=== PATIENT | female | born 1985 | race Caucasian/White ===

== ENCOUNTER → 2019-12-28 10:23 | Outpatient (BNVA) | payer BC, SELFPAY | PROVIDERS: Visit Provider Advanced Practice Midwife | DX: Z01.419 Encounter for gynecological examination (general) (routine) without abnormal findings (principal); Z30.42 Encounter for surveillance of injectable contraceptive; N89.8 Other specified noninflammatory disorders of vagina; E66.01 Morbid (severe) obesity due to excess calories; Z68.41 Body mass index [BMI] 40.0-44.9, adult | CPT/HCPCS: 96372; J1050 ==

== ENCOUNTER → 2020-03-21 14:52 | Outpatient (BNVA) | payer BC, SELFPAY | PROVIDERS: Visit Provider Advanced Practice Midwife ==

== ENCOUNTER → 2020-06-13 12:55 | Outpatient (BNVA) | payer BC, SELFPAY | PROVIDERS: Visit Provider Advanced Practice Midwife | DX: Z30.42 Encounter for surveillance of injectable contraceptive (principal) | CPT/HCPCS: 96372; J1050 ==

== ENCOUNTER → 2020-08-30 12:51 | Outpatient (BNVA) | payer BC, SELFPAY | PROVIDERS: Visit Provider Advanced Practice Midwife | DX: Z30.42 Encounter for surveillance of injectable contraceptive (principal) | CPT/HCPCS: 96372 ==

== ENCOUNTER → 2020-11-17 14:50 | Outpatient (BNVA) | payer BC, SELFPAY | PROVIDERS: Visit Provider Advanced Practice Midwife | DX: Z30.42 Encounter for surveillance of injectable contraceptive (principal) | CPT/HCPCS: 96372 ==

== ENCOUNTER → 2021-03-15 14:28 | Outpatient (BNVA) | payer BC, SELFPAY | PROVIDERS: Visit Provider Advanced Practice Midwife | DX: Z30.42 Encounter for surveillance of injectable contraceptive (principal); E66.01 Morbid (severe) obesity due to excess calories; Z68.38 Body mass index [BMI] 38.0-38.9, adult | CPT/HCPCS: 81025; 96372 ==

== ENCOUNTER → 2021-06-05 08:48 | Outpatient (BNVA) | payer BC, SELFPAY | PROVIDERS: Visit Provider Advanced Practice Midwife | DX: Z30.42 Encounter for surveillance of injectable contraceptive (principal) | CPT/HCPCS: 96372 ==

== ENCOUNTER → 2021-08-28 13:04 | Outpatient (BNVA) | payer BC, SELFPAY | PROVIDERS: Visit Provider Advanced Practice Midwife | DX: Z30.42 Encounter for surveillance of injectable contraceptive (principal) | CPT/HCPCS: 96372 ==

== ENCOUNTER 2021-11-28 14:57 | Outpatient (REF) | payer BC, OTHER, SELFPAY ==
[2021-11-30 22:17] LABS: HPV mRNA E6/E7 rflx Not Detected (Not Detected)
== END 2021-11-28 14:58 | disposition home or self-care (01) ==
LOC: HO.LNP 14:57
PROVIDERS: Visit Provider Advanced Practice Midwife
DX: Z30.42 Encounter for surveillance of injectable contraceptive (principal); Z12.4 Encounter for screening for malignant neoplasm of cervix; Z11.51 Encounter for screening for human papillomavirus (HPV)
CPT/HCPCS: 87624; 88142; 96372

== ENCOUNTER → 2022-02-20 14:53 | Outpatient (BNVA) | payer BC, SELFPAY | PROVIDERS: Visit Provider Advanced Practice Midwife | DX: Z30.42 Encounter for surveillance of injectable contraceptive (principal) | CPT/HCPCS: 96372 ==

== ENCOUNTER → 2022-05-14 14:58 | Outpatient (BNVA) | payer BC, SELFPAY | PROVIDERS: Visit Provider Advanced Practice Midwife | DX: Z30.42 Encounter for surveillance of injectable contraceptive (principal) | CPT/HCPCS: 96372 ==

== ENCOUNTER 2022-08-23 15:08 | Outpatient (AMB) | payer SELFPAY ==
[2022-08-23 15:12] VITALS: BP 110/70; BMI 40.8
--- NOTE | 2022-08-23 15:12 | MHC.OFFVIS ---
Intake Vital Signs 08/23/22 15:12 Height 5 ft 2 in Weight 223 lb BMI 40.8 BP 110/70 Intake Visit Reasons: restart depo Intake Note: The patient agreed to use of a medical billing manager during this encounter. Scribed for ALISSA Will by Annie Hodges medical billing manager, on 08/23/2022 at 3:19 pm EST. Allergies No Known Allergies Allergy (Mild, Verified 08/23/22 15:14) UNKNOWN HPI HPI Comments History of Present Illness Details She is here to day with interest of restarting Depo Provera today. UPI 2-3 weeks ago. [facility] Medical History Surveillance for Depo-Provera contraception Surgical History No history of previous surgery Family History Father Heart attack Maternal Grandmother Lung cancer Maternal Grandfather Heart problem Social History Alcohol intake: current Alcohol intake frequency: a few times a month Alcohol type: wine Patient Tobacco Use Status: Never used Tobacco Sexual orientation: Straight/Heterosexual Gender identity: Female Female Reproductive History Menstrual Age of Menarche: 14 Physical Exam Vital Signs: Last Vital Signs BP 110/70 08/23/22 15:12 BMI result Body Mass Index 40.8 Const General: cooperative, healthy appearing, comfortable, no acute distress, well developed, alert and awake Office Procedures Depo Questionnaire If YES to any of the following questions, please consult a provider. Date of last injection: 02/20/22 Menstrual pattern since last injection has been: Normal test in office results: Negative Irregular bleeding?: No Breast lumps or other breast changes?: No Changes in weight or appetite?: No Depression or changes in mood?: No Abnormal hair growth or loss?: No Skin problems (rash, acne, discoloration)?: No Pain at the injection site?: No Headaches?: No Nervousness?: No Abdominal pain or cramping?: No Dizziness or nausea?: No Fatigue or weakness?: No Decrease in sexual drive?: No Chest pain or shortness of breath?: No Swelling in arms or legs?: No Any other problems or concerns?: RE start depo today/ appt with JOSEPH Sawant Form completed by?: Zainab Sierra LPN Office Meds Depo-Provera Performing Provider: Azra Sawant CNM Administered by: Lizy Sierra LPN on 08/23/22 15:37 Dose Route Admin Location Lot Number Expiration Date [employer] Cutter 150 mg IM rt. deltoid [id number] 11/10/24 41838-389-55 [facility] Results AMB Test Urine AMB Test Urine Negative Last Edit by CONSTANTINO Sherman on 08/23/22 15:17 Results Reviewed Results Reviewed: Laboratory Last Values [facility] Negative 08/23/22 15:16 Assessment & Plan Assessment & Plan (1) control counseling: Code(s): Z30.09 - Encounter for other general counseling and advice on contraception Plan: Discussed: Instructed to monitor periods and contact the office with any concerns. Encouraged condoms always to prevent STD's. Advised BUM x 7days. Return every 12 weeks thereafter. Encouraged patient to sign up for patient portal. She will call the office with any concerns. (2) Encounter for management and injection of depo-Provera: Code(s): Z30.42 - Encounter for surveillance of injectable contraceptive (3) Surveillance for Depo-Provera contraception: Code(s): Z30.42 - Encounter for surveillance of injectable contraceptive Orders: Orders AMB Medroxyprogesterone Injection Patient Supplied Today Z30.42 - Encounter for surveillance of injectable contraceptive AMB HCG Urine Test Today Z32.02 - Encounter for test, result negative Coding Level of Care Code Est Pt Level 3 (59304) Diagnoses control counseling Z30.09 Encounter for management and injection of depo-Provera Z30.42 Surveillance for Depo-Provera contraception Z30.42
== END 2022-08-24 07:20 | disposition home or self-care (01) ==
LOC: HO.HWS 15:08
PROVIDERS: Visit Provider Advanced Practice Midwife
DX: Z30.09 Encounter for other general counseling and advice on contraception (principal); Z30.42 Encounter for surveillance of injectable contraceptive; Z32.02 Encounter for pregnancy test, result negative
CPT/HCPCS: 99213

== ENCOUNTER → 2022-08-23 15:08 | Outpatient (BNVA) | payer BC, SELFPAY | PROVIDERS: Visit Provider Advanced Practice Midwife | DX: Z30.42 Encounter for surveillance of injectable contraceptive (principal); Z30.09 Encounter for other general counseling and advice on contraception; Z32.02 Encounter for pregnancy test, result negative | CPT/HCPCS: 81025; 96372; J1050 ==

== ENCOUNTER 2022-11-22 15:06 | Outpatient (AMB) | payer BC, SELFPAY ==
[2022-11-22 15:34] VITALS: BMI 41.5
--- NOTE | 2022-11-22 15:34 | AM.OFFVISNUR ---
Intake Vital Signs 11/22/22 15:34 Height 5 ft 2 in Weight 102.965 kg BMI 41.5 Intake Visit Reasons: Depo Allergies No Known Allergies Allergy (Mild, Verified 08/23/22 15:14) UNKNOWN Nursing Note patricia is here for her Depo-Provera inj. No c/o pt is scheduled for AG in 1 week. Pt to schedule next depo-provera inj in 12 wks. Office Procedures Depo Questionnaire If YES to any of the following questions, please consult a provider. Date of last injection: 08/23/22 Date of last gynecology exam: 11/28/21 Menstrual pattern since last injection has been: Not Applicable Irregular bleeding?: No Breast lumps or other breast changes?: No Changes in weight or appetite?: No Depression or changes in mood?: No Abnormal hair growth or loss?: No Skin problems (rash, acne, discoloration)?: No Pain at the injection site?: No Headaches?: No Nervousness?: No Abdominal pain or cramping?: No Dizziness or nausea?: No Fatigue or weakness?: No Decrease in sexual drive?: No Chest pain or shortness of breath?: No Swelling in arms or legs?: No Any other problems or concerns?: none voiced Form completed by?: Zainab Sierra LPN Office Meds Depo-Provera 150 mg/mL intramuscular syringe Performing Provider: Azra Sawant CNM [place] [facility] [place] [facility] Administered by: Lizy Sierra LPN on 11/22/22 15:35 Dose Route Admin Location Dispensed Lot Number Expiration Date [facility] Core Analyst 150 mg IM left deltoid 1 mL [id number] 12/11/24 02621-727-[address] [facility] Coding Level of Care Code Established Pt Est Pt Level 1 (76177) Patient Type Established History Problem Focused Exam Problem Focused Medical Decision Making Straight Forward Time Spent (min) 20 Assessment & Plan Assessment & Plan Orders: Orders AMB Medroxyprogesterone Injection Patient Supplied Today Z30.42 - Encounter for surveillance of injectable contraceptive
== END 2022-11-22 15:33 | disposition home or self-care (01) ==
PROVIDERS: Visit Provider Advanced Practice Midwife
DX: Z30.42 Encounter for surveillance of injectable contraceptive (principal)

== ENCOUNTER → 2022-11-22 15:06 | Outpatient (BNVA) | payer BC, SELFPAY | PROVIDERS: Visit Provider Advanced Practice Midwife | DX: Z30.42 Encounter for surveillance of injectable contraceptive (principal) | CPT/HCPCS: 96372; 99211; J1050 ==

== ENCOUNTER 2022-11-30 15:02 | Outpatient (AMB) | payer SELFPAY ==
--- NOTE | 2022-11-30 15:19 | MHC.OFFVIS ---
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 She admits to eating healthy and tries to stay active with work. Currently sexually active. Uses Depo for BC and is doing well. Denies vaginal itching and irritation. STD screening offered; she declines. Denies family hx of breast, colon and ovarian cancer. Last pap smear 11/29/21. She denies any contraindications to control such as: migraines with aura, history of DVT or pulmonary emboli, high blood pressure, liver disease, thrombolic disorders, Lupus, +JENNIFER, or smoking. [facility] Medical History Surveillance for Depo-Provera contraception Surgical History No history of previous surgery Family History Father Heart attack Maternal Grandmother Lung cancer Maternal Grandfather Heart problem Social History Household Members: Spouse and Children Housing: House Alcohol intake: current Alcohol intake frequency: a few times a month Alcohol type: wine Patient Tobacco Use Status: Never used Tobacco Current occupational status: employed Current occupation: Paraprofetional at school Sexually active: Yes Sexual orientation: Straight/Heterosexual Gender identity: Female Female Reproductive History Menstrual Age of Menarche: 14 control method: progesterone injection Total pregnancies: 4 Full term: 4 Number of Living Children: 4 Date of last pap smear: 11/29/21 Physical Exam Vital Signs: Last Vital Signs BP 122/88 11/30/22 15:23 BMI result Body Mass Index 41.1 Const General: cooperative, healthy appearing, no acute distress, well developed and alert Orientation/consciousness: patient oriented x3 HEENT Head: Yes normal to inspection Eyes General: appearance normal, both eyes and all related structures Neck Neck: Yes normal visual inspection Thyroid: Thyroid normal Chest Chest palpation & inspection: normal inspection of the chest Breast/axilla inspection: normal inspection of the breasts (no puckering, dimpling, peau de orange, retraction, discharge, masses) Breast/axilla palpation: normal palpation of the breasts Resp Effort & Inspection: normal respiratory effort GI Inspection: Yes normal to inspection Palpation (GI): Soft to palpation (to palpation) Rectal Exam - Female: deferred General: Yes bladder normal to inspection External Female Exam: normal external appearance and normal appearance of the urethra Speculum Exam - Vagina: normal appearance of the vagina, normal palpation and normal vaginal discharge Speculum Exam - Cervix: normal appearance of the cervix and normal palpation Bimanual exam- vagina & uterus: normal palpation and normal palpation Bimanual Exam- Adnexa, other: normal adnexae and no masses Skin General skin exam: no rashes or lesions noted Neuro General: patient oriented x3 Cognition (Neuro): normal cognition Extrem General: Yes normal to inspection Psych Attitude: cooperative Thought process: Normal thought process present Assessment & Plan Assessment & Plan (1) Encounter for well woman exam: Code(s): Z01.419 - Encounter for gynecological examination (general) (routine) without abnormal findings Plan: Discussed: Current recommendations for pap smears per ASCCP guidelines. Breast awareness and periodic self breast exams. Maintaining a healthy lifestyle including a well balanced diet and routine exercise. Encouraged patient to sign up for patient portal. All of her questions and concerns were addressed to the best of my ability. RTO in one year for AG. (2) Surveillance for Depo-Provera contraception: Code(s): Z30.42 - Encounter for surveillance of injectable contraceptive Plan: She was instructed to go to ER if she develops loss of vision, severe headache that does not resolve, chest pain, difficulty breathing, abdominal pain, or pain or tenderness in extremity or new breast lumps. Call the office with any concerns. Medications: Refilled medroxyprogesterone (Depo-Provera) 150 mg IM Q12W 1 mL 4RF Coding Level of Care Code Est Pt Prev Care 18-39y(85354) Diagnoses Encounter for well woman exam Z01.419 Surveillance for Depo-Provera contraception Z30.42
[2022-11-30 15:23] VITALS: BP 122/88; BMI 41.1
== END 2022-11-30 15:48 | disposition home or self-care (01) ==
PROVIDERS: Visit Provider Advanced Practice Midwife
DX: Z01.419 Encounter for gynecological examination (general) (routine) without abnormal findings (principal); Z30.42 Encounter for surveillance of injectable contraceptive
CPT/HCPCS: 99395

== ENCOUNTER → 2022-11-30 15:02 | Outpatient (BNVA) | payer SELFPAY | PROVIDERS: Visit Provider Advanced Practice Midwife ==

== ENCOUNTER 2023-02-07 08:53 | Outpatient (AMB) | payer BC, SELFPAY ==
[2023-02-07 09:04] VITALS: BMI 41.3
--- NOTE | 2023-02-07 09:04 | AM.OFFVISNUR ---
Intake Vital Signs 02/07/23 09:04 Height 5 ft 2 in Weight 102.54 kg BMI 41.3 Intake Visit Reasons: DEPO Allergies No Known Allergies Allergy (Mild, Verified 11/30/22 15:25) UNKNOWN Nursing Note Lenka is here today for her scheduled Depo-Provera inj.She has been experiencing some abn bleeding with cramps, but is relating this to being on antibiotics x 2 weeks. Pt reports it is light, not a regular flow, but mostly when she wipes. Pt was advised if her bleeding continues for another week or two to call for appt. Pt verbs understanding. Office Procedures Depo Questionnaire If YES to any of the following questions, please consult a provider. Date of last injection: 11/12/22 Date of last menstrual period: 01/21/23 Date of last gynecology exam: 11/22/22 Menstrual pattern since last injection has been: Normal Irregular bleeding?: Yes Breast lumps or other breast changes?: No Changes in weight or appetite?: No Depression or changes in mood?: No Abnormal hair growth or loss?: No Skin problems (rash, acne, discoloration)?: No Pain at the injection site?: No Headaches?: No Nervousness?: No Abdominal pain or cramping?: Yes Dizziness or nausea?: No Fatigue or weakness?: No Decrease in sexual drive?: No Chest pain or shortness of breath?: No Swelling in arms or legs?: No Form completed by?: Zainab Sierra LPN Office Meds Depo-Provera 150 mg/mL intramuscular syringe Performing Provider: Azra Sawant CNM [place] [facility] [facility] Administered by: Lizy Sierra LPN on 02/07/23 09:05 Dose Route Admin Location Dispensed Lot Number Expiration Date [facility] Plug Cutter 150 mg IM rt. deltoid 1 mL [id number] 12/11/24 75654-364-24 [facility] Coding Level of Care Code Established Pt Est Pt Level 1 (45133) Patient Type Established History Problem Focused Exam Problem Focused Medical Decision Making Straight Forward Time Spent (min) 20 Assessment & Plan Assessment & Plan Orders: Orders AMB Medroxyprogesterone Injection Patient Supplied Today Z30.42 - Encounter for surveillance of injectable contraceptive
== END 2023-02-07 09:03 | disposition home or self-care (01) ==
LOC: HO.HWS 08:53
PROVIDERS: Visit Provider Advanced Practice Midwife
DX: Z30.42 Encounter for surveillance of injectable contraceptive (principal)

== ENCOUNTER → 2023-02-07 08:53 | Outpatient (BNVA) | payer BC, SELFPAY | PROVIDERS: Visit Provider Advanced Practice Midwife | DX: Z30.42 Encounter for surveillance of injectable contraceptive (principal) | CPT/HCPCS: 96372; 99211; J1050 ==

== ENCOUNTER 2023-04-26 14:54 | Outpatient (AMB) | payer BC, SELFPAY ==
[2023-04-26 15:15] VITALS: BMI 42.5
--- NOTE | 2023-04-26 15:15 | AM.OFFVISNUR ---
Intake Vital Signs 04/26/23 15:15 Height 5 ft 2 in Weight 232 lb 4 oz BMI 42.5 Intake Visit Reasons: DEPO Emergency Response Technician Required: No Allergies No Known Allergies Allergy (Mild, Verified 11/30/22 15:25) UNKNOWN Is last menstrual period known: No Post menopausal: No Patient : No Do you need a note to return to daycare/school/sports/work: No Nursing Note Lenka is here for scheduled for Depo provera injection. No c/o. Pt tolerated injection well. She will schedule her next injection in 12 weeks. Pt verbalized understanding and agrees with plan. No further questions. Office Procedures Depo Questionnaire If YES to any of the following questions, please consult a provider. Date of last injection: 02/07/23 Date of last gynecology exam: 11/30/22 Menstrual pattern since last injection has been: Not Applicable Irregular bleeding?: No Breast lumps or other breast changes?: No Changes in weight or appetite?: No Depression or changes in mood?: No Abnormal hair growth or loss?: No Skin problems (rash, acne, discoloration)?: No Pain at the injection site?: No Headaches?: No Nervousness?: No Abdominal pain or cramping?: No Dizziness or nausea?: No Fatigue or weakness?: No Decrease in sexual drive?: No Chest pain or shortness of breath?: No Swelling in arms or legs?: No Form completed by?: Nely Thompson mine utility operator Meds Depo-Provera 150 mg/mL intramuscular syringe Performing Provider: Azra Sawant CNM Performing Location: [facility] [place] [facility] Administered by: Nely Thompson on 04/26/23 15:17 Dose Route Admin Location Dispensed Lot Number Expiration Date [facility] Key Bed Installer 150 mg IM left deltoid 1 mL [id number] 05/11/25 70485-350-40 [facility] Coding Level of Care Code Established Pt Est Pt Level 1 (52752) Patient Type Established History Problem Focused Medical Decision Making Straight Forward Time Spent (min) 12 Assessment & Plan Assessment & Plan Orders: Orders AMB Medroxyprogesterone Injection Patient Supplied Today Z30.42 - Encounter for surveillance of injectable contraceptive
== END 2023-04-26 15:11 | disposition home or self-care (01) ==
LOC: HO.HWS 14:55
PROVIDERS: Visit Provider Advanced Practice Midwife
DX: Z30.42 Encounter for surveillance of injectable contraceptive (principal)

== ENCOUNTER → 2023-04-26 14:54 | Outpatient (BNVA) | payer BC, SELFPAY | PROVIDERS: Visit Provider Advanced Practice Midwife | DX: Z30.42 Encounter for surveillance of injectable contraceptive (principal) | CPT/HCPCS: 96372; 99211; J1050 ==

== ENCOUNTER 2023-07-16 15:12 | Outpatient (AMB) | payer BC, SELFPAY ==
--- NOTE | 2023-07-16 15:27 | AM.OFFVISNUR ---
Intake Vital Signs 07/16/23 15:28 Height 5 ft 2 in Weight 105.233 kg BMI 42.4 Intake Visit Reasons: Depo/315pm arrival Allergies No Known Allergies Allergy (Mild, Verified 11/30/22 15:25) UNKNOWN Nursing Note Lenka is here today for her scheduled Depo-provera inj. She has no complaints, and tolerated inj well. follow up in September. for next inj. Office Procedures Depo Questionnaire If YES to any of the following questions, please consult a provider. Date of last injection: 04/26/23 Date of last gynecology exam: 11/30/22 Menstrual pattern since last injection has been: Not Applicable Irregular bleeding?: No Breast lumps or other breast changes?: No Changes in weight or appetite?: No Depression or changes in mood?: No Abnormal hair growth or loss?: No Skin problems (rash, acne, discoloration)?: No Pain at the injection site?: No Headaches?: No Nervousness?: No Abdominal pain or cramping?: No Dizziness or nausea?: No Fatigue or weakness?: No Decrease in sexual drive?: No Chest pain or shortness of breath?: No Swelling in arms or legs?: No Form completed by?: Zainab Sierra LPN Office Meds Depo-Provera 150 mg/mL intramuscular syringe Performing Provider: Azra Sawant CNM [place] [facility] [place] [facility] Administered by: Lizy Sierra LPN on 07/16/23 15:28 Dose Route Admin Location Dispensed Lot Number Expiration Date [facility] Security Systems Administrator 150 mg IM 1 mL [id number] 09/09/25 76546-152-51 [facility] Coding Level of Care Code Established Pt Est Pt Level 1 (58340) Patient Type Established History Problem Focused Exam Problem Focused Medical Decision Making Straight Forward Time Spent (min) 20 Assessment & Plan Assessment & Plan Orders: Orders AMB Medroxyprogesterone Injection Patient Supplied Today Z30.42 - Encounter for surveillance of injectable contraceptive Medications: New Depo-Provera (medroxyprogesterone) 150 mg IM ONCE 1 mL 0RF NS Z30.42 - Encounter for surveillance of injectable contraceptive
[2023-07-16 15:28] VITALS: BMI 42.4
== END 2023-07-17 10:21 | disposition home or self-care (01) ==
LOC: HO.HWS 15:13
PROVIDERS: Visit Provider Advanced Practice Midwife
DX: Z30.42 Encounter for surveillance of injectable contraceptive (principal)

== ENCOUNTER → 2023-07-16 15:12 | Outpatient (BNVA) | payer BC, SELFPAY | PROVIDERS: Visit Provider Advanced Practice Midwife | DX: Z30.42 Encounter for surveillance of injectable contraceptive (principal) | CPT/HCPCS: 96372; 99211; J1050 ==

== ENCOUNTER 2023-10-01 14:57 | Outpatient (AMB) | payer BC, SELFPAY ==
--- NOTE | 2023-10-01 15:12 | AM.OFFVISNUR ---
Vital Signs 10/01/23 15:13 Height 5 ft 2 in Weight 241 lb 2 oz BMI 44.1 Intake Visit Reasons: depo Allergies No Known Allergies Allergy (Mild, Verified 11/30/22 15:25) UNKNOWN Nursing Note Lenka is here for scheduled Depo provera injection. No c/o, no new medical problems and no new medications. Pt tolerated injection well. She will schedule her next injection in 12 weeks. Pt verbalizes understanding and agrees with plan. No further questions. Office Procedures Depo Questionnaire If YES to any of the following questions, please consult a provider. Date of last injection: 07/16/23 Date of last gynecology exam: 11/30/22 Menstrual pattern since last injection has been: Not Applicable Irregular bleeding?: No Breast lumps or other breast changes?: No Changes in weight or appetite?: No Depression or changes in mood?: No Abnormal hair growth or loss?: No Skin problems (rash, acne, discoloration)?: No Pain at the injection site?: No Headaches?: No Nervousness?: No Abdominal pain or cramping?: No Dizziness or nausea?: No Fatigue or weakness?: No Decrease in sexual drive?: No Chest pain or shortness of breath?: No Swelling in arms or legs?: No Form completed by?: Nely Thompson exercise scientist Meds Depo-Provera 150 mg/mL intramuscular syringe Performing Provider: Azra Sawant CNM Performing Location: [facility] [place] [facility] Administered by: Nely Thompson on 10/01/23 15:15 Dose Route Admin Location Dispensed Lot Number Expiration Date [facility] [employer] Installer 150 mg IM left deltoid 1 mL [id number] 02/10/26 98951-884-34 [facility] Assessment & Plan Assessment & Plan (1) Surveillance for Depo-Provera contraception: Code(s): Z30.42 - Encounter for surveillance of injectable contraceptive Category: Medical Plan Pt will schedule next injection in 12 weeks. Orders: Orders AMB Medroxyprogesterone Injection Patient Supplied 10/01/23 Z30.42 - Encounter for surveillance of injectable contraceptive
[2023-10-01 15:13] VITALS: BMI 44.1
== END 2023-10-01 15:22 | disposition home or self-care (01) ==
LOC: HO.HWS 14:57
PROVIDERS: Visit Provider Advanced Practice Midwife
DX: Z30.42 Encounter for surveillance of injectable contraceptive (principal)

== ENCOUNTER → 2023-10-01 14:57 | Outpatient (BNVA) | payer BC, SELFPAY | PROVIDERS: Visit Provider Advanced Practice Midwife | DX: Z30.42 Encounter for surveillance of injectable contraceptive (principal) | CPT/HCPCS: 96372; 99211; J1050 ==

== ENCOUNTER 2023-12-03 13:59 | Outpatient (AMB) | payer BC, SELFPAY ==
--- NOTE | 2023-12-03 14:03 | A.OFFVIS_ITS ---
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 Doing well with no concerns. She tries to eat healthy and stays active with exercise. Doing well on Depo Provera. She denies any contraindications to control such as: migraines with aura, history of DVT or pulmonary emboli, high blood pressure, liver disease, thrombolic disorders, Lupus, +JENNIFER, breast cancer, or smoking. Currently is sexually active. She denies vaginal itching and irritation. STI screening offered; she declines. Denies family history of breast, ovarian or colon cancer. Last pap smear 2021, negative. [facility] Medical History Surveillance for Depo-Provera contraception Surgical History No history of previous surgery Family History Father Heart attack Maternal Grandmother Lung cancer Maternal Grandfather Heart problem Social History Household Members: Spouse and Children Housing: House Alcohol intake: current Alcohol intake frequency: a few times a month Alcohol type: wine Patient Tobacco Use Status: Never used Tobacco Current occupational status: employed Current occupation: Paraprofetional at school Sexual orientation: Straight/Heterosexual Gender identity: Female Female Reproductive History Menstrual Age of Menarche: 14 control method: progesterone injection (Depo 10/01/23) Total pregnancies: 4 Full term: 4 Number of Living Children: 4 Date of last pap smear: 11/28/21 (neg pap and hpv) Review of Systems Const All systems reviewed & are unremarkable except as noted in HPI and below Reports as per HPI Eyes Reports no additional complaints ENT Reports no additional complaints Card Reports no additional complaints Resp Reports no additional complaints GI Reports as per HPI and Reports no additional complaints Reports as per HPI Musc Reports no additional complaints Skin/Breast Reports as per HPI Neuro Reports no additional complaints Psych Reports no additional complaints Endo Reports no additional complaints Jonah/Lymph Reports no additional complaints Aller/Immun Reports no additional complaints Physical Exam Vital Signs: Last Vital Signs BP 114/70 12/03/23 14:04 BMI result Body Mass Index 44.1 Const General: cooperative, healthy appearing, no acute distress, well developed and alert Orientation/consciousness: patient oriented x3 HEENT Head: Yes normal to inspection Eyes General: appearance normal, both eyes and all related structures Neck Neck: Yes normal visual inspection Thyroid: Thyroid normal Chest Chest palpation & inspection: normal inspection of the chest and other (no puckering, dimpling, peau de orange, retraction, discharge, masses) Breast/axilla inspection: normal inspection of the breasts Breast/axilla palpation: normal palpation of the breasts Resp Effort & Inspection: normal respiratory effort GI Inspection: Yes normal to inspection Palpation (GI): Soft to palpation Rectal Exam - Female: deferred General: Yes bladder normal to palpation External Female Exam: normal external appearance and normal appearance of the urethra Speculum Exam - Vagina: normal appearance of the vagina, normal palpation and normal vaginal discharge Speculum Exam - Cervix: normal appearance of the cervix and normal palpation Bimanual exam- vagina & uterus: normal bimanual exam, normal palpation, uterine size normal, bladder normal to palpation, normal palpation and non-tender Bimanual Exam- Adnexa, other: no masses Skin General skin exam: no rashes or lesions noted Rashes: no rashes Neuro General: patient oriented x3 Cognition (Neuro): normal cognition Extrem General: Yes normal to inspection Psych Attitude: cooperative Thought process: Normal thought process present Assessment & Plan Assessment & Plan (1) Well woman exam with routine gynecological exam: Code(s): Z01.419 - Encounter for gynecological examination (general) (routine) without abnormal findings Category: Medical Plan Discussed: Current recommendations for pap smears per ASCCP guidelines. Breast awareness and periodic breast exams. Maintain a healthy lifestyle including a well balanced diet and routine exercise. control hormone use warnings: go to ER if and loss of vision, blindness, severe headache, chest pain or difficulty breathing, severe abdominal pain, or any pain or swelling in an extremity. Patient verbalizes understanding and agrees to the plan of care. She was given opportunity to ask questions and all questions were answered to the best of my ability. RTO in one year for annual dry end tester examination. This note is constructed using voice recognition software. While every effort has been made to ensure accuracy, machine trimmer errors may have been included. Medications: Refilled medroxyprogesterone (Depo-Provera) 150 mg IM [id number] 1 mL 4RF 3 months Coding Level of Care Code Est Pt Prev Care 18-39y(01071) Diagnoses Well woman exam with routine gynecological exam Z01.419
[2023-12-03 14:04] VITALS: BP 114/70; BMI 44.1
== END 2023-12-03 14:34 | disposition home or self-care (01) ==
PROVIDERS: Visit Provider Advanced Practice Midwife
DX: Z01.419 Encounter for gynecological examination (general) (routine) without abnormal findings (principal)
CPT/HCPCS: 99395

== ENCOUNTER → 2023-12-03 13:59 | Outpatient (BNVA) | payer BC, SELFPAY | PROVIDERS: Visit Provider Advanced Practice Midwife ==

== ENCOUNTER 2023-12-23 10:54 | Outpatient (AMB) | payer BC, SELFPAY ==
[2023-12-23 11:53] VITALS: BMI 44.1
--- NOTE | 2023-12-23 11:53 | AM.OFFVISNUR ---
Vital Signs 12/23/23 11:53 Height 5 ft 2 in Weight 241 lb BMI 44.1 Intake Visit Reasons: DEPO Allergies No Known Allergies Allergy (Mild, Verified 12/03/23 14:04) UNKNOWN Nursing Note patricia is here today for her scheduled Depo-provera inj. No c/o. Follow up in 12 weeks. Office Procedures Depo Questionnaire If YES to any of the following questions, please consult a provider. Date of last injection: 10/01/23 Date of last gynecology exam: 12/03/23 Menstrual pattern since last injection has been: Not Applicable Irregular bleeding?: No Breast lumps or other breast changes?: No Changes in weight or appetite?: No Depression or changes in mood?: No Abnormal hair growth or loss?: No Skin problems (rash, acne, discoloration)?: No Pain at the injection site?: No Headaches?: No Nervousness?: No Abdominal pain or cramping?: No Dizziness or nausea?: No Fatigue or weakness?: No Decrease in sexual drive?: No Chest pain or shortness of breath?: No Swelling in arms or legs?: No Any other problems or concerns?: None voiced Form completed by?: Zainab carlson LPN Office Meds Depo-Provera 150 mg/mL intramuscular syringe Performing Provider: Azra Sawant CNM Performing Location: [facility] [place] [facility] Administered by: Lizy Carlson LPN on 12/23/23 11:53 Dose Route Admin Location Dispensed Lot Number Expiration Date [facility] Health Education Specialist 150 mg IM left deltoid 1 mL [id number] 02/10/26 33567-843-97 [facility] Assessment & Plan Assessment & Plan Orders: Orders AMB Medroxyprogesterone Injection Patient Supplied Today Z30.42 - Encounter for surveillance of injectable contraceptive Medications: New Depo-Provera (medroxyprogesterone) 150 mg IM ONCE 1 mL 0RF NS Z30.42 - Encounter for surveillance of injectable contraceptive
== END 2023-12-23 12:11 | disposition home or self-care (01) ==
LOC: HO.HWS 10:54
PROVIDERS: Visit Provider Advanced Practice Midwife
DX: Z30.42 Encounter for surveillance of injectable contraceptive (principal)

== ENCOUNTER → 2023-12-23 10:54 | Outpatient (BNVA) | payer BC, SELFPAY | PROVIDERS: Visit Provider Advanced Practice Midwife | DX: Z30.42 Encounter for surveillance of injectable contraceptive (principal) | CPT/HCPCS: 96372; 99211; J1050 ==

== ENCOUNTER 2024-03-16 14:56 | Outpatient (AMB) | payer BC, SELFPAY ==
[2024-03-16 15:13] VITALS: BMI 44.4
--- NOTE | 2024-03-16 15:13 | AM.OFFVISNUR ---
Vital Signs 03/16/24 15:13 Height 5 ft 2 in Weight 243 lb BMI 44.4 Intake Visit Reasons: DEPO Allergies No Known Allergies Allergy (Mild, Verified 12/03/23 14:04) UNKNOWN Nursing Note Lenka is here today for her scheduled Depo-Provera inj. She has no complaints today. follow up in 12 wks. for next inj. Office Procedures Depo Questionnaire If YES to any of the following questions, please consult a provider. Date of last injection: 12/23/23 Date of last gynecology exam: 12/03/23 Menstrual pattern since last injection has been: Not Applicable Irregular bleeding?: No Breast lumps or other breast changes?: No Changes in weight or appetite?: No Depression or changes in mood?: No Abnormal hair growth or loss?: No Skin problems (rash, acne, discoloration)?: No Pain at the injection site?: No Headaches?: No Nervousness?: No Abdominal pain or cramping?: No Dizziness or nausea?: No Fatigue or weakness?: No Decrease in sexual drive?: No Chest pain or shortness of breath?: No Swelling in arms or legs?: No Any other problems or concerns?: none voiced Form completed by?: Zainab Sierra LPN Office Meds Depo-Provera 150 mg/mL intramuscular syringe Performing Provider: Azra Sawant CNM Performing Location: [facility] [place] [facility] Administered by: Lizy Sierra LPN on 03/16/24 15:14 Dose Route Admin Location Dispensed Lot Number Expiration Date [facility] Magazine Filler 150 mg IM left deltoid 1 mL [id number] 06/10/26 98790-274-97 [facility] Assessment & Plan Assessment & Plan Orders: Orders AMB Medroxyprogesterone Injection Patient Supplied Today Z30.42 - Encounter for surveillance of injectable contraceptive Medications: New Depo-Provera (medroxyprogesterone) 150 mg IM ONCE 1 mL 0RF NS Z30.42 - Encounter for surveillance of injectable contraceptive Coding Level of Care Code Established Pt Est Pt Level 1 (03975) Patient Type Established History Problem Focused Exam Problem Focused Medical Decision Making Straight Forward Time Spent (min) 20
== END 2024-03-16 15:06 | disposition home or self-care (01) ==
LOC: HO.HWS 14:56
PROVIDERS: Visit Provider Advanced Practice Midwife
DX: Z30.42 Encounter for surveillance of injectable contraceptive (principal)

== ENCOUNTER → 2024-03-16 14:56 | Outpatient (BNVA) | payer BC, SELFPAY | PROVIDERS: Visit Provider Advanced Practice Midwife | DX: Z30.42 Encounter for surveillance of injectable contraceptive (principal) | CPT/HCPCS: 96372; 99211; J1050 ==

== ENCOUNTER 2024-06-03 08:52 | Outpatient (AMB) | payer BC, SELFPAY ==
[2024-06-03 09:01] VITALS: BMI 43.3
--- NOTE | 2024-06-03 09:01 | AM.OFFVISNUR ---
Vital Signs 06/03/24 09:01 Height 5 ft 2 in Weight 237 lb BMI 43.3 Intake Visit Reasons: DEPO Allergies No Known Allergies Allergy (Mild, Verified 12/03/23 14:04) UNKNOWN Nursing Note Lenka is here today for her scheduled Depo-provera inj. She had spotting about 2 wks ago. She denies any problems or concerns. Follow up in 12 wks for her next inj. AG scheduled for 11/2024. Office Procedures Depo Questionnaire If YES to any of the following questions, please consult a provider. Date of last injection: 03/16/24 Date of last menstrual period: 05/18/24 Date of last gynecology exam: 12/03/23 Menstrual pattern since last injection has been: Light Irregular bleeding?: No Breast lumps or other breast changes?: No Changes in weight or appetite?: Yes (lost 3 lbs) Depression or changes in mood?: No Abnormal hair growth or loss?: No Skin problems (rash, acne, discoloration)?: No Pain at the injection site?: No Headaches?: No Nervousness?: No Abdominal pain or cramping?: No Dizziness or nausea?: No Fatigue or weakness?: No Decrease in sexual drive?: No Chest pain or shortness of breath?: No Swelling in arms or legs?: No Form completed by?: Zainab Sierra LPN Office Meds Depo-Provera 150 mg/mL intramuscular syringe Performing Provider: Azra Sawant CNM Performing Location: [facility] [place] [facility] Administered by: Lizy Sierra LPN on 06/03/24 09:02 Dose Route Admin Location Dispensed Lot Number Expiration Date [facility] Sales Clerk Supervisor 150 mg IM rt. deltoid 1 mL [id number] 06/10/26 33327-354-74 [facility] Assessment & Plan Assessment & Plan Orders: Orders AMB Medroxyprogesterone Injection Patient Supplied Today Z30.42 - Encounter for surveillance of injectable contraceptive Medications: New Depo-Provera (medroxyprogesterone) 150 mg IM ONCE 1 mL 0RF NS Z30.42 - Encounter for surveillance of injectable contraceptive Coding Level of Care Code Established Pt Est Pt Level 1 (76375) Patient Type Established History Problem Focused Exam Problem Focused Medical Decision Making Straight Forward Time Spent (min) 20
== END 2024-06-03 09:11 | disposition home or self-care (01) ==
LOC: HO.HWS 08:52
PROVIDERS: Visit Provider Advanced Practice Midwife
DX: Z30.42 Encounter for surveillance of injectable contraceptive (principal)

== ENCOUNTER → 2024-06-03 08:52 | Outpatient (BNVA) | payer BC, SELFPAY | PROVIDERS: Visit Provider Advanced Practice Midwife | DX: Z30.42 Encounter for surveillance of injectable contraceptive (principal) | CPT/HCPCS: 96372; 99211; J1050 ==

== ENCOUNTER → 2024-08-24 11:02 | Outpatient (BNVA) | payer BC, SELFPAY | PROVIDERS: Visit Provider Advanced Practice Midwife | DX: Z30.42 Encounter for surveillance of injectable contraceptive (principal) | CPT/HCPCS: 96372; 99211; J1050 ==

== ENCOUNTER → 2024-08-24 11:02 | Outpatient (AMB) | payer BC, SELFPAY ==
[2024-08-24 11:11] VITALS: BMI 45.0
--- NOTE | 2024-08-24 11:11 | AM.OFFVISNUR ---
Vital Signs 08/24/24 11:11 Height 5 ft 2 in Weight 246 lb BMI 45.0 Intake Visit Reasons: depo Allergies No Known Allergies Allergy (Mild, Verified 12/03/23 14:04) UNKNOWN Nursing Note Lenka is here today for her scheduled Depo-provera inj. She denies any problems or concerns. AG scheduled for 12/08/24. Follow up in 12 weeks for next inj. Office Procedures Depo Questionnaire If YES to any of the following questions, please consult a provider. Date of last injection: 06/03/24 Date of last gynecology exam: 12/03/23 Menstrual pattern since last injection has been: Not Applicable Irregular bleeding?: No Breast lumps or other breast changes?: No Changes in weight or appetite?: Yes (gain) Depression or changes in mood?: No Abnormal hair growth or loss?: No Skin problems (rash, acne, discoloration)?: No Pain at the injection site?: No Headaches?: No Nervousness?: No Abdominal pain or cramping?: No Dizziness or nausea?: No Fatigue or weakness?: No Decrease in sexual drive?: No Chest pain or shortness of breath?: No Swelling in arms or legs?: No Form completed by?: Zainab Sierra LPN Office Meds Depo-Provera 150 mg/mL intramuscular syringe Performing Provider: Azra Sawant CNM Performing Location: [facility] [place] [place] [facility] Administered by: Lizy Sierra LPN on 08/24/24 11:14 Dose Route Admin Location Dispensed Lot Number Expiration Date [facility] Mrb Engineer 150 mg IM rt. deltoid 1 mL [id number] 01/10/27 07854-819-76 [facility] Total Dispensed Waste 1 mL 0 % Assessment & Plan Assessment & Plan Orders: Orders AMB Medroxyprogesterone Injection Patient Supplied Today Z30.42 - Encounter for surveillance of injectable contraceptive Coding Level of Care Code Established Pt Est Pt Level 1 (47375) Patient Type Established History Problem Focused Exam Problem Focused Medical Decision Making Straight Forward Time Spent (min) 20
== END ==
LOC: HO.HWS 11:02
PROVIDERS: Visit Provider Advanced Practice Midwife
DX: Z30.42 Encounter for surveillance of injectable contraceptive (principal)

== ENCOUNTER 2024-11-16 14:46 | Outpatient (AMB) | payer BC, SELFPAY ==
[2024-11-16 16:02] VITALS: BMI 44.5
--- NOTE | 2024-11-16 16:02 | AM.OFFVISNUR ---
Vital Signs 11/16/24 16:02 Height 5 ft 2 in Weight 243 lb 4 oz BMI 44.5 Intake Visit Reasons: depo Allergies No Known Allergies Allergy (Mild, Verified 12/03/23 14:04) UNKNOWN Nursing Note Lenka is here today for her scheduled Depo-provera inj. Pt has no complaints AG scheduled for 12/08/24. Office Procedures Depo Questionnaire If YES to any of the following questions, please consult a provider. Date of last injection: 08/25/24 Date of last gynecology exam: 12/03/23 Menstrual pattern since last injection has been: Not Applicable Irregular bleeding?: No Breast lumps or other breast changes?: No Changes in weight or appetite?: No Depression or changes in mood?: No Abnormal hair growth or loss?: No Skin problems (rash, acne, discoloration)?: No Pain at the injection site?: No Headaches?: No Nervousness?: No Abdominal pain or cramping?: No Dizziness or nausea?: No Fatigue or weakness?: No Decrease in sexual drive?: No Chest pain or shortness of breath?: No Swelling in arms or legs?: No Form completed by?: Zainab Sierra LPN Office Meds Depo-Provera 150 mg/mL intramuscular syringe Performing Provider: Azra Sawant CNM Performing Location: [facility] [place] [facility] Administered by: Lizy Sierra LPN on 11/16/24 16:03 Dose Route Admin Location Dispensed Lot Number Expiration Date [facility] Commercial Manager 150 mg IM LT deltoid 1 mL [id number] 01/10/27 81198-561-36 [facility] Total Dispensed Waste 1 mL 0 % Assessment & Plan Assessment & Plan Orders: Orders AMB Medroxyprogesterone Injection Patient Supplied Today Z30.42 - Encounter for surveillance of injectable contraceptive Coding Level of Care Code Established Pt Est Pt Level 1 (89035) Patient Type Established History Problem Focused Exam Problem Focused Medical Decision Making Straight Forward Time Spent (min) 20
== END 2024-11-16 15:07 | disposition home or self-care (01) ==
LOC: HO.HWS 14:46
PROVIDERS: Visit Provider Advanced Practice Midwife
DX: Z30.42 Encounter for surveillance of injectable contraceptive (principal)
CPT/HCPCS: 99499

== ENCOUNTER → 2024-11-16 14:46 | Outpatient (BNVA) | payer BC, SELFPAY | PROVIDERS: Visit Provider Advanced Practice Midwife | DX: Z30.42 Encounter for surveillance of injectable contraceptive (principal) | CPT/HCPCS: 96372; J1050 ==

== ENCOUNTER 2025-02-03 13:17 | Outpatient (AMB) | payer BC, SELFPAY ==
--- OUTSIDE RECORDS SUMMARY | 2025-02-03 13:18 | XMS_ITS | Clinical Summary ---
Author Organization [facility] [address] [place] [address] [place] [address] Phone Care Team Providers Care Chemic Mangler Name Role Phone Karly Antunez MD Primary Care Provider [phone] Surgical History Surgery Date Site/Laterality Comments EYE SURGERY PROCEDURE: HISTORICAL EYE SURGERY; COMMENT: 3rd grade lazy eye correction Family History Relation Name Status Comments Father Mi at age 56 Mother Alive unknown medical health Social History Tobacco Use Types Packs/Day Years Used Date Smoking Tobacco: Never Smokeless Tobacco: Never Alcohol Use Standard Drinks/Week Comments Yes 0 (1 standard drink = 0.6 oz pur e alcohol) Comments Unknown Sex and Gender Information Value Date Recorded Sex Assigned at Not on file Legal Sex Female 3:45 PM EST Gender Identity Not on file Sexual Orientation Not on file Plan of Treatment Upcoming Encounters Date Type Department Care Team ([facility] Contact Info) Description 05/13/2025 1:30 PM EDT Office Visit Adult Medicine [facility] [address] [place] [address] Hazel Keating PA [address] [place], [place] Health Maintenance Due Date Last Done Comments Breast Cancer Screening 1985 DTaP,Tdap,and Td Vaccines (1 - Tdap) 01/06/2004 Hepatitis B Vaccines (1 of 3 - 19+ 3-dose series) 01/06/2004 Cervical Cancer Screening: P ap Smear 2006 HPV Vaccines (1 - 3-dose SCD M series) 01/06/2012 Depression Screening 02/12/2024 COVID-19 Vaccine (1 - 2024-2 6 season) 2024 Influenza Vaccine (#1) 2024 HIV Screening 12/30/2024 Hepatitis C Screening 12/30/2024 Social Influencers of Health Screening 12/30/2024 RSV Immunization Adult Patie nts (1 - 1-dose 75+ series) 01/06/2060 HIB Vaccines Aged Out No longer eligi ble based on patient's age to complete this topic Hepatitis A Vaccines Aged Out No long er eligible based on patient's age to complete this topic IPV Vaccines Aged Out No longer eligi ble based on patient's age to complete this topic MMR Vaccines Aged Out No longer eligi ble based on patient's age to complete this topic Meningococcal ACWY Vaccine Aged Out N o longer eligible based on patient's age to complete this topic Meningococcal B Vaccine Aged Out No l onger eligible based on patient's age to complete this topic Pneumococcal Vaccine: Pediat rics (0 to 5 Years) and At-Risk Patients (6 to 49 Years) Aged Out No longer eligible b ased on patient's age to complete this topic RSV Immunization Patients Un yojana 20 months Aged Out No longer eligible b ased on patient's age to complete this topic Varicella Vaccines Aged Out No longer eligible based on patient's age to complete this topic Insurance [facility] Care Teams Chemic Mangler Relationship Specialty Start Date End Date Karly Antunez MD [address] [place] [address] PCP - General Internal Medicine 07/10/11
--- NOTE | 2025-02-03 13:31 | MHC.OFFVIS ---
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 Intake Note: here for annual and depo injection Technical Associate Required: No Information Interpreted: non-clinical & clinical Auto Wash Buffer: Auto Wash Buffer Present (Aparna) Accompanied by: Self / Same As Patient Allergies No Known Allergies Allergy (Mild, Verified 02/03/25 13:37) UNKNOWN Medication List - Last Reconciled 02/03/25 by Frances Reece LPN medroxyprogesterone 150 mg IM Q12W 12 weeks Is last menstrual period known: Yes (has been on depo ) Last menstrual period: 02/03/22 Do you need a note to return to daycare/school/sports/work: No HPI HPI BUILDING EQUIPMENT OPERATOR annual exam: Details: Patient is here for an annual exam and to get her Depo shot. Share last Depo was given on 11/16/2024 she normally sees Azra Sawant. She had called yesterday stating she did not want to discuss her weight at this visit but she is okay discussing it a little bit she knows she is overweight and has gained weight. She does like the Depo-Provera and has been on it for about 9 years since the of her last child. 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 Her is a upset operator working on repair of electrical lines in and is away for 5 days at a time. She does have an appointment with a brand new primary care provider in May at [facility]. She was hoping to get it sooner but that was the soonest appointment they had and so she knows that she will be discussing getting all of her health screens done at that visit and getting checked for diabetes cholesterol etc.. She likes the Depo-Provera because she does not get her period on it. I did discuss with her the recommendations to not continue on Depo-Provera for too many years because of some theoretical concern about loss of mineral buildup in her bones over time. Discussed whether not she would ever considered a Mirena IUD and she said she has never like the idea of putting anything inside of her. She says she has been talking to her sister about it who has been encouraging her to try it. Discussed that it would be caro to continue this discussion at future visits and give consideration to it more actively. Additionally there is the weight concern she may have gained weight while she has been on the Depo Provera on the other hand she is also busy working mother of 4 who has not had time for self-care and exercise the way somebody with more time might. Discussed prioritizing her health this year which she is intent on doing. Additionally she has a number of growths on her neck that she has seen the cook seafood for and they are continuing to increase so she is going to be getting that taken care of as well I will also order a mammogram for her. She is going to get her Depo-Provera today and return in 12 weeks for the next 1 Next Depo 316 or before I recommend continuing discussion of control method at that visit also. [facility] Medical History Surveillance for Depo-Provera contraception Surgical History No history of previous surgery Family History Father Heart attack Maternal Grandmother Lung cancer Maternal Grandfather Heart problem Social History Household Members: Spouse and Children Housing: House Alcohol intake: current Alcohol intake frequency: a few times a month Alcohol type: wine Patient Tobacco Use Status: Never used Tobacco Current occupational status: employed Current occupation: Paraprofetional at school Sexual orientation: Straight/Heterosexual Gender identity: Female Female Reproductive History Menstrual Age of Menarche: 14 Date of last menstrual period: 02/03/22 control method: progesterone injection Total pregnancies: 4 Number of Living Children: 4 Date of last pap smear: 11/29/21 History of abnormal pap smear: No Physical Exam Vital Signs: Last Vital Signs BP 124/84 02/03/25 13:34 BMI result Body Mass Index 44.8 Const Other: Patient has multiple skin growths on her neck which she says have gotten more in number some have been frozen often she will be seeing cook seafood again. General: healthy appearing, comfortable, no acute distress, well developed and alert Nutritional Appearance: average body habitus Orientation/consciousness: patient oriented x3 Limitations: no limitations HEENT Head: Yes normocephalic Neck Neck: Yes normal visual inspection Thyroid: Thyroid normal Chest Chest palpation & inspection: normal inspection of the chest Breast/axilla inspection: normal inspection of the breasts and normal inspection of the axillae Breast/axilla palpation: normal palpation of the breasts and normal palpation of the axillae Resp Effort & Inspection: normal respiratory effort GI Inspection: Yes normal to inspection, No Abdominal wall edema and No distended Palpation (GI): Soft to palpation and nontender Other: Patient is not due for Pap smear and declined any screening for any STIs. She just wanted the pelvic exam as part of the annual External exam within normal limits vagina pink and moist cervix multiparous pink smooth mobile nontender with normal appearing mucus cervix mobile nontender uterus nonenlarged nontender good tone with Kegel adnexa nontender as well. General: Yes bladder normal to palpation External Female Exam: normal external appearance and normal appearance of the urethra Speculum Exam - Vagina: normal appearance of the vagina, normal palpation and normal vaginal discharge Speculum Exam - Cervix: normal appearance of the cervix, normal palpation and nontender Bimanual exam- vagina & uterus: normal bimanual exam, normal palpation, uterine size normal, bladder normal to palpation, consistency normal, normal palpation, uterine mobility normal, uterine shape normal, No Cervical tenderness present, non-tender and no cervical motion tenderness Bimanual Exam- Adnexa, other: normal adnexae, no masses, normal and No adnexal tenderness Neuro General: patient oriented x3 Office Procedures Depo Questionnaire If YES to any of the following questions, please consult a provider. Date of last injection: 12/06/24 Irregular bleeding?: No Breast lumps or other breast changes?: No Changes in weight or appetite?: No Depression or changes in mood?: No Abnormal hair growth or loss?: No Skin problems (rash, acne, discoloration)?: No Pain at the injection site?: No Headaches?: No Nervousness?: No Abdominal pain or cramping?: No Dizziness or nausea?: No Fatigue or weakness?: No Decrease in sexual drive?: No Chest pain or shortness of breath?: No Swelling in arms or legs?: No Form completed by?: Edith SHIRLEY Results Reviewed Results Reviewed: Name: Lenka Norton Age/Sex: 36/F Attending: Azra Sawant CNM : 1985 Submitted by: Azra Sawant CNM Copies to: MR #: [id number] Status: DEP REF Collected: 11/28/21 Location: [facility] Received: 11/29/21 Interpretation Satisfactory for evaluation. Mild inflammation. Negative for intraepithelial lesion or malignancy. HPV mRNA E6/E7: NOT DETECTED This assay detects E6/E7 viral messenger RNA (mRNA) from 14 high-risk HPV types (16, 18, 31, 33, 35, 39, 45, 51, 52, 56, 58, 59, 66, 68) HPV testing performed by [facility], [place], [place]. See reference laboratory pion of the EMR for entire report. Clinical Information LMP: Depo Previous PAP test: 2017, WNL Material Received ThinPrep-Cervical Electronically Signed By: ALCIDES Maravilla (ASCP) 12/05/21 1031 The Pap Test is a screening procedure with the inherent possibility of both false negative and false positive results. Results should be interpreted in the context of historic and current clinical findings. Reliability of the Pap Test is enhanced by performing the test on a regular repetitive basis. Patient: Lenka Norton Age/Sex: 36/F MR#: [id number] Page 1 of 1 Assessment & Plan Assessment & Plan (1) Well woman exam with routine gynecological exam: Code(s): Z01.419 - Encounter for gynecological examination (general) (routine) without abnormal findings Category: Medical (2) Encounter for management and injection of depo-Provera: Code(s): Z30.42 - Encounter for surveillance of injectable contraceptive Category: Medical (3) Surveillance for Depo-Provera contraception: Code(s): Z30.42 - Encounter for surveillance of injectable contraceptive Category: Medical (4) control counseling: Code(s): Z30.09 - Encounter for other general counseling and advice on contraception Category: Medical (5) Breast cancer screening: Code(s): Z12.39 - Encounter for other screening for malignant neoplasm of breast Category: Medical Plan Patient is here for an annual exam and to get her Depo shot. Share last Depo was given on 11/16/2024 she normally sees Azra Sawant. She had called yesterday stating she did not want to discuss her weight at this visit but she is okay discussing it a little bit she knows she is overweight and has gained weight. She does like the Depo-Provera and has been on it for about 9 years since the of her last child. 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 Her is a upset operator working on repair of electrical lines in and is away for 5 days at a time. She does have an appointment with a brand new primary care provider in May at [facility]. She was hoping to get it sooner but that was the soonest appointment they had and so she knows that she will be discussing getting all of her health screens done at that visit and getting checked for diabetes cholesterol etc.. She likes the Depo-Provera because she does not get her period on it. I did discuss with her the recommendations to not continue on Depo-Provera for too many years because of some theoretical concern about loss of mineral buildup in her bones over time. Discussed whether not she would ever considered a Mirena IUD and she said she has never like the idea of putting anything inside of her. She says she has been talking to her sister about it who has been encouraging her to try it. Discussed that it would be caro to continue this discussion at future visits and give consideration to it more actively. Additionally there is the weight concern she may have gained weight while she has been on the Depo Provera on the other hand she is also busy working mother of 4 who has not had time for self-care and exercise the way somebody with more time might. Discussed prioritizing her health this year which she is intent on doing. Additionally she has a number of growths on her neck that she has seen the cook seafood for and they are continuing to increase so she is going to be getting that taken care of as well I will also order a mammogram for her. She is going to get her Depo-Provera today and return in 12 weeks for the next 1 Next Depo 316 or before I recommend continuing discussion of control method at that visit also. Orders: Orders AMB Medroxyprogesterone Injection Patient Supplied Today Z30.42 - Encounter for surveillance of injectable contraceptive MM tomosynthesis screening BI Today E66.01 - Morbid (severe) obesity due to excess calories, Z01.419 - Encounter for gynecological examination (general) (routine) without abnormal findings, Z12.31 - Encounter for screening mammogram for malignant neoplasm of breast, Z12.39 - Encounter for other screening for malignant neoplasm of breast, Z30.09 - Encounter for other general counseling and advice on contraception, Z30.42 - Encounter for surveillance of injectable contraceptive Coding Level of Care Code Est Pt Prev Care 40-64y([id number]) Diagnoses Well woman exam with routine gynecological exam Z01.419 Encounter for management and injection of depo-Provera Z30.42 Surveillance for Depo-Provera contraception Z30.42 control counseling Z30.09 Breast cancer screening Z12.39
[2025-02-03 13:34] VITALS: BP 124/84; BMI 44.8
== END 2025-02-03 14:33 | disposition home or self-care (01) ==
LOC: HO.HWSM 13:17
PROVIDERS: Visit Provider Advanced Practice Midwife
DX: Z01.419 Encounter for gynecological examination (general) (routine) without abnormal findings (principal); Z30.42 Encounter for surveillance of injectable contraceptive; Z30.09 Encounter for other general counseling and advice on contraception; Z12.39 Encounter for other screening for malignant neoplasm of breast
CPT/HCPCS: 96372; 99396; 99459

== ENCOUNTER → 2025-02-03 13:17 | Outpatient (BNVA) | payer BC, SELFPAY | PROVIDERS: Visit Provider Advanced Practice Midwife | DX: Z01.419 Encounter for gynecological examination (general) (routine) without abnormal findings (principal); Z30.42 Encounter for surveillance of injectable contraceptive; Z30.09 Encounter for other general counseling and advice on contraception | CPT/HCPCS: J1050 ==